=== PATIENT | male | born 2005 | race Native Hawaiian/Other Pacific Islander ===

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

== ENCOUNTER 2024-12-02 23:05 | Emergency (ER) | payer SELFPAY ==
[~2024-12-02] VITALS: Ht 172.7 cm; Wt 54.4 kg
[2024-12-02] MEDS ORDERED: Tdap Vaccine 0.5 ML SYR (Adult Vaccine) IM ONE (23:25)
[2024-12-03] MEDS ORDERED: Bacitracin Zinc 14 GM TUBE T ONE (01:05)
== END 2024-12-03 01:17 | disposition home or self-care (01) ==
LOC: ED 23:05
DX: S61.011A Laceration without foreign body of right thumb without damage to nail, initial encounter (principal); W26.8XXA Contact with other sharp object(s), not elsewhere classified, initial encounter; Y93.89 Activity, other specified; Y92.89 Other specified places as the place of occurrence of the external cause; Y99.8 Other external cause status

== ENCOUNTER 2024-12-11 16:19 | Emergency (ER) | payer OTHER ==
[~2024-12-11] VITALS: Ht 172.7 cm; Wt 54.4 kg
== END 2024-12-11 17:19 | disposition home or self-care (01) ==
LOC: ED 16:19
DX: S61.011D Laceration without foreign body of right thumb without damage to nail, subsequent encounter (principal); Z48.02 Encounter for removal of sutures; Z79.899 Other long term (current) drug therapy; W45.8XXD Other foreign body or object entering through skin, subsequent encounter